=== PATIENT | male | born 1980 | race Caucasian/White ===

== ENCOUNTER 2017-07-11 09:19 | Emergency (ER) | payer OTHER ==
[~2017-07-11] VITALS: Ht 172.7 cm; Wt 85.0 kg
[~2017-07-11 09:19] MED LIST: DILAUDID 22 MG/1 ML
[2017-07-11] MEDS ORDERED: LIDODERM 5% P1 PATCH TD (11:47)
[2017-07-11] MEDS ORDERED: PREDNISONE20 MG PO (11:47)
[2017-07-11] MEDS ORDERED: MOTRIN800 MG PO (11:47)
[2017-07-11] MEDS ORDERED: FLEXERIL10 MG PO (11:47)
[2017-07-11 12:40] VITALS: BP 120/73
== END 2017-07-11 12:43 | disposition home or self-care (01) ==
LOC: EME 09:19
DX: M54.41 Lumbago with sciatica, right side (principal); M51.37 Other intervertebral disc degeneration, lumbosacral region; W10.9XXA Fall (on) (from) unspecified stairs and steps, initial encounter
CPT/HCPCS: 72100; 73502; 99281; 99284; J7512